=== PATIENT | male | born 1955 | race African-American/Black ===

== ENCOUNTER 2022-02-11 10:58 | Inpatient (IN) | payer OTHER ==
[2022-02-11 12:51] VITALS: BMI 20.9
[2022-02-11] MEDS ORDERED: MAGNESIUM HYDROX 2400MG/30ML ORAL SUSPENSION 30 ML CUP PO PRN (13:17)
[2022-02-11] MEDS ORDERED: NICOTINE 10 MG CARTRIDGE (INHALER) IH PRN (13:17)
[2022-02-11] MEDS ORDERED: BENZOCAINE/MENTHOL (CHLORASEPTIC ) LOZENGE MM PRN (13:17)
[2022-02-11] MEDS ORDERED: ACETAMINOPHEN 325 MG TABLET (FP) PO PRN ×2 (13:17)
[2022-02-11] MEDS ORDERED: NALOXONE HCL (KLOXXADO) 8 MG SPRAY NS PRN (13:17)
[2022-02-11] MEDS ORDERED: ONDANSETRON *ODT* 4 MG TABLET SL PRN (13:17)
[2022-02-11] MEDS ORDERED: LOPERAMIDE HCL 2 MG CAPSULE PO PRN (13:17)
[2022-02-11] MEDS ORDERED: POLYETHYLENE GLYCOL (HEALTHYLAX) 3350 17 GM PACKET PO PRN (13:17)
[2022-02-11] MEDS ORDERED: IBUPROFEN 400 MG TABLET (FP) PO PRN (13:17)
[2022-02-11] MEDS ORDERED: BISMUTH SUBSALICYLATE 524 MG/30 ML PO PRN (13:17)
[2022-02-11] MEDS ORDERED: DICYCLOMINE HCL 10 MG CAPSULE PO PRN (13:17)
[2022-02-11] MEDS ORDERED: MAG HYDROX/AL HYDROX/SIMETH 30 ML UNIT-DOSE CUP PO PRN (13:17)
[2022-02-11] MEDS ORDERED: IBUPROFEN 600 MG TABLET (FP) PO PRN (13:17)
[2022-02-11] MEDS: METHOCARBAMOL 500 MG TABLET PO PRN (14:50)
[2022-02-11] MEDS: PRENATAL VITAMINS W/ FOLIC ACID TABLET (FP) PO SCH (14:51)
[2022-02-11] MEDS: NICOTINE 21 MG/24 HOURS TOPICAL PATCH TD SCH (15:03)
[2022-02-11] MEDS: diazePAM 5 MG TABLET PO SCH ×2 (17:31→22:11)
[2022-02-11] MEDS: THIAMINE HCL 100 MG TABLET (FP) PO SCH (22:10)
[2022-02-11] MEDS: MELATONIN 5 MG TABLETS PO SCH (22:10)
[2022-02-11] MEDS: hydrOXYzine PAMOATE 25 MG CAPSULE (FP) PO PRN (22:11)
[2022-02-11] MEDS: QUEtiapine FUMARATE 100 MG TABLET (FP) PO SCH (22:11)
[2022-02-12] MEDS: diazePAM 5 MG TABLET PO SCH ×4 (06:00→22:20)
[2022-02-12] MEDS ORDERED: methaDONE HCL 10 MG TABLET PO ONE (09:11)
[2022-02-12] MEDS ORDERED: methaDONE 80 MG, methaDONE 10 MG PO ONE (09:20)
[2022-02-12] MEDS: METHOCARBAMOL 500 MG TABLET PO PRN ×2 (10:51→18:36)
[2022-02-12] MEDS: PRENATAL VITAMINS W/ FOLIC ACID TABLET (FP) PO SCH (10:52)
[2022-02-12] MEDS: NICOTINE 21 MG/24 HOURS TOPICAL PATCH TD SCH (10:58)
[2022-02-12 11:38] LABS: CALCIUM 8.5 mg/dL (8.5-10.1)
[2022-02-12 11:39] LABS: ALBUMIN 2.9 g/dl (3.4-5.0); BLOOD UREA NITROGEN 12.8 mg/dL (7-18); HEMOGLOBIN 12.8 GM/dL (11.7-16.9); MCH 27.8 pg (25.7-33.7); MCHC 31.9 g/dl (32.0-35.9); MEAN CELL VOLUME 87.1 fl (80-96); MEAN PLT VOLUME 9.3 fl (7.5-11.1); PLATELET COUNT 215 10^3/uL (134-434); RBC 4.59 M/mm3 (4.00-5.60); RDW 16.3 % (11.9-15.9); WHITE BLOOD COUNT 5.6 K/mm3 (4.0-10.0)
[2022-02-12 11:42] LABS: CREATININE 0.7 mg/dL (0.55-1.3)
[2022-02-12 11:43] LABS: BILIRUBIN,TOTAL 0.3 mg/dL (0.2-1)
[2022-02-12 11:44] LABS: TOT PROT 6.2 g/dl (6.4-8.2)
[2022-02-12 12:34] LABS: HIV INTERPRETATION NEGATIVE (NEGATIVE)
[2022-02-12] MEDS ORDERED: LACTULOSE 20 GM/30 ML UDC (FOR ORAL USE ONLY) PO PRN (14:38)
[2022-02-12] MEDS: diazePAM 5 MG TABLET PO PRN ×2 (14:40→18:37)
[2022-02-12] MEDS: hydrOXYzine PAMOATE 25 MG CAPSULE (FP) PO PRN (18:36)
[2022-02-12] MEDS: THIAMINE HCL 100 MG TABLET (FP) PO SCH (22:13)
[2022-02-12] MEDS: QUEtiapine FUMARATE 100 MG TABLET (FP) PO SCH (22:13)
[2022-02-12] MEDS: MELATONIN 5 MG TABLETS PO SCH (22:13)
[2022-02-13] MEDS: diazePAM 5 MG TABLET PO SCH ×3 (05:42→22:32)
[2022-02-13] MEDS: methaDONE 80 MG, methaDONE 10 MG PO SCH (05:42)
[2022-02-13] MEDS ORDERED: methaDONE HCL 10 MG TABLET PO SCH (06:00)
[2022-02-13] MEDS ORDERED: LISINOPRIL 5 MG TABLET PO SCH (10:00)
[2022-02-13] MEDS: PRENATAL VITAMINS W/ FOLIC ACID TABLET (FP) PO SCH (10:37)
[2022-02-13] MEDS: LISINOPRIL 5 MG TABLET PO SCH (10:38)
[2022-02-13] MEDS: NICOTINE 21 MG/24 HOURS TOPICAL PATCH TD SCH (10:38)
[2022-02-13] MEDS: RIFAXIMIN 550 MG TABLET PO SCH ×2 (11:00→22:32)
[2022-02-13] MEDS: MELATONIN 5 MG TABLETS PO SCH (22:30)
[2022-02-13] MEDS: QUEtiapine FUMARATE 100 MG TABLET (FP) PO SCH (22:30)
[2022-02-13] MEDS: THIAMINE HCL 100 MG TABLET (FP) PO SCH (22:30)
[2022-02-14] MEDS: diazePAM 5 MG TABLET PO SCH ×2 (06:15→17:28)
[2022-02-14] MEDS: methaDONE 80 MG, methaDONE 10 MG PO SCH (06:15)
[2022-02-14] MEDS: PRENATAL VITAMINS W/ FOLIC ACID TABLET (FP) PO SCH (10:28)
[2022-02-14] MEDS: LISINOPRIL 5 MG TABLET PO SCH (10:28)
[2022-02-14] MEDS: NICOTINE 21 MG/24 HOURS TOPICAL PATCH TD SCH (10:28)
[2022-02-14] MEDS: RIFAXIMIN 550 MG TABLET PO SCH ×2 (10:29→22:26)
[2022-02-14] MEDS: LACTULOSE 20 GM/30 ML UDC (FOR ORAL USE ONLY) PO SCH ×2 (13:12→22:25)
[2022-02-14] MEDS: MELATONIN 5 MG TABLETS PO SCH (22:25)
[2022-02-14] MEDS: THIAMINE HCL 100 MG TABLET (FP) PO SCH (22:25)
[2022-02-14] MEDS: QUEtiapine FUMARATE 100 MG TABLET (FP) PO SCH (22:26)
[2022-02-15] MEDS ORDERED: diazePAM 5 MG TABLET PO ONE (06:00)
[2022-02-15] MEDS: LACTULOSE 20 GM/30 ML UDC (FOR ORAL USE ONLY) PO SCH ×3 (07:39→22:08)
[2022-02-15] MEDS: methaDONE 80 MG, methaDONE 10 MG PO SCH (07:39)
[2022-02-15] MEDS: PRENATAL VITAMINS W/ FOLIC ACID TABLET (FP) PO SCH (10:50)
[2022-02-15] MEDS: LISINOPRIL 5 MG TABLET PO SCH (10:50)
[2022-02-15] MEDS: NICOTINE 21 MG/24 HOURS TOPICAL PATCH TD SCH (10:50)
[2022-02-15] MEDS: RIFAXIMIN 550 MG TABLET PO SCH ×2 (10:51→22:09)
[2022-02-15] MEDS: QUEtiapine FUMARATE 100 MG TABLET (FP) PO SCH (22:09)
[2022-02-15] MEDS: MELATONIN 5 MG TABLETS PO SCH (22:09)
[2022-02-15] MEDS: THIAMINE HCL 100 MG TABLET (FP) PO SCH (22:09)
[2022-02-16] MEDS: LACTULOSE 20 GM/30 ML UDC (FOR ORAL USE ONLY) PO SCH (05:55)
[2022-02-16] MEDS: methaDONE 80 MG, methaDONE 10 MG PO SCH (05:55)
[2022-02-16 06:50] VITALS: PULSE 106
[2022-02-16 09:50] VITALS: BP 115/79; RESP 20; TEMP 98
[2022-02-16] MEDS: PRENATAL VITAMINS W/ FOLIC ACID TABLET (FP) PO SCH (11:03)
[2022-02-16] MEDS: LISINOPRIL 5 MG TABLET PO SCH (11:03)
[2022-02-16] MEDS: NICOTINE 21 MG/24 HOURS TOPICAL PATCH TD SCH (11:03)
[2022-02-16] MEDS: RIFAXIMIN 550 MG TABLET PO SCH (11:03)
== END 2022-02-16 11:47 | disposition home or self-care (01) | DRG 897 ==
LOC: YASAS 10:58 → Y6N 14:22
PROVIDERS: ADMIT Allergy & Immunology; ATTEND Surgery
PROC: HZ2ZZZZ Detoxification Services for Substance Abuse Treatment (ICD-10-PCS; principal; 2022-02-11)
DX: F10.230 Alcohol dependence with withdrawal, uncomplicated (principal); F11.20 Opioid dependence, uncomplicated; F14.20 Cocaine dependence, uncomplicated; F19.282 Other psychoactive substance dependence with psychoactive substance-induced sleep disorder; F15.10 Other stimulant abuse, uncomplicated; F17.210 Nicotine dependence, cigarettes, uncomplicated; F25.9 Schizoaffective disorder, unspecified; F19.24 Other psychoactive substance dependence with psychoactive substance-induced mood disorder; I10 Essential (primary) hypertension; R79.89 Other specified abnormal findings of blood chemistry; Z86.19 Personal history of other infectious and parasitic diseases; Z91.011 Allergy to milk products
CPT/HCPCS: 36415; 80053; 82140; 85027; 86780; 87389; 93005; 93010; C9803-CS; U0003; U0005

== ENCOUNTER 2022-04-16 13:30 | Inpatient (IN) | payer OTHER ==
[2022-04-16 15:25] VITALS: BMI 20.9
[2022-04-16] MEDS ORDERED: NICOTINE 10 MG CARTRIDGE (INHALER) IH PRN (16:26)
[2022-04-16] MEDS ORDERED: LORazepam 2 MG TABLET PO ONE (16:26)
[2022-04-16] MEDS ORDERED: IBUPROFEN 600 MG TABLET (FP) PO PRN (16:26)
[2022-04-16] MEDS ORDERED: POLYETHYLENE GLYCOL (HEALTHYLAX) 3350 17 GM PACKET PO PRN (16:26)
[2022-04-16] MEDS ORDERED: MAG HYDROX/AL HYDROX/SIMETH 30 ML UNIT-DOSE CUP PO PRN (16:26)
[2022-04-16] MEDS ORDERED: LOPERAMIDE HCL 2 MG CAPSULE PO PRN (16:26)
[2022-04-16] MEDS ORDERED: NALOXONE HCL (KLOXXADO) 8 MG SPRAY NS PRN (16:26)
[2022-04-16] MEDS ORDERED: IBUPROFEN 400 MG TABLET (FP) PO PRN (16:26)
[2022-04-16] MEDS ORDERED: BISMUTH SUBSALICYLATE 524 MG/30 ML PO PRN (16:26)
[2022-04-16] MEDS ORDERED: LORazepam 1 MG TABLET PO PRN (16:26)
[2022-04-16] MEDS ORDERED: DICYCLOMINE HCL 10 MG CAPSULE PO PRN (16:26)
[2022-04-16] MEDS ORDERED: BENZOCAINE/MENTHOL (CHLORASEPTIC ) LOZENGE MM PRN (16:26)
[2022-04-16] MEDS ORDERED: MAGNESIUM HYDROX 2400MG/30ML ORAL SUSPENSION 30 ML CUP PO PRN (16:26)
[2022-04-16] MEDS ORDERED: hydrOXYzine PAMOATE 25 MG CAPSULE (FP) PO PRN (16:26)
[2022-04-16] MEDS ORDERED: ONDANSETRON *ODT* 4 MG TABLET SL PRN (16:26)
[2022-04-16] MEDS ORDERED: ACETAMINOPHEN 325 MG TABLET (FP) PO PRN ×2 (16:26)
[2022-04-16] MEDS ORDERED: NICOTINE 21 MG/24 HOURS TOPICAL PATCH TD SCH (16:30)
[2022-04-16] MEDS ORDERED: PRENATAL VITAMINS W/ FOLIC ACID TABLET (FP) PO SCH (16:30)
[2022-04-16] MEDS: LORazepam 2 MG TABLET PO SCH ×2 (17:33→22:37)
[2022-04-16] MEDS ORDERED: MELATONIN 5 MG TABLETS PO SCH (22:00)
[2022-04-16] MEDS ORDERED: THIAMINE HCL 100 MG TABLET (FP) PO SCH (22:00)
[2022-04-17 01:58] VITALS: BP 141/96; PULSE 81; RESP 17; TEMP 97.8
[2022-04-17] MEDS: LORazepam 2 MG TABLET PO SCH (05:51)
[2022-04-17] MEDS ORDERED: LISINOPRIL 10 MG TABLET PO SCH (10:00)
[2022-04-18] MEDS ORDERED: LORazepam 1 MG TABLET PO SCH (05:00)
[2022-04-19] MEDS ORDERED: LORazepam 0.5 MG TABLET PO PRN
[2022-04-19] MEDS ORDERED: LORazepam 0.5 MG TABLET PO SCH (05:00)
[2022-04-20] MEDS ORDERED: LORazepam 0.5 MG TABLET PO ONE (05:00)
== END 2022-04-17 11:18 | disposition short-term general hospital (02) | DRG 897 ==
LOC: YASAS 13:30 → Y6N 16:46
PROVIDERS: ADMIT Allergy & Immunology; ATTEND Surgery
PROC: HZ2ZZZZ Detoxification Services for Substance Abuse Treatment (ICD-10-PCS; principal; 2022-04-16)
DX: F10.230 Alcohol dependence with withdrawal, uncomplicated (principal); F11.20 Opioid dependence, uncomplicated; F14.20 Cocaine dependence, uncomplicated; F19.282 Other psychoactive substance dependence with psychoactive substance-induced sleep disorder; F12.20 Cannabis dependence, uncomplicated; F17.210 Nicotine dependence, cigarettes, uncomplicated; F25.9 Schizoaffective disorder, unspecified; F19.24 Other psychoactive substance dependence with psychoactive substance-induced mood disorder; F41.9 Anxiety disorder, unspecified; Z86.19 Personal history of other infectious and parasitic diseases
CPT/HCPCS: C9803-CS; U0003; U0005

== ENCOUNTER 2022-04-17 02:27 | Observation (INO) | payer OTHER ==
[2022-04-17 03:30] LABS: BASO % 0.8 % (0-2.0); EOS % 1.9 % (0-4.5); HEMATOCRIT 36.2 % (35.4-49); HEMOGLOBIN 12.3 GM/dL (11.7-16.9); MCH 29.6 pg (25.7-33.7); MCHC 33.9 g/dl (32.0-35.9); MEAN CELL VOLUME 87.2 fl (80-96); MONO % 8.1 % (3.8-10.2); NEUT % 62.2 % (42.8-82.8); PLATELET COUNT 202 10^3/uL (134-434); RBC 4.15 M/mm3 (4.00-5.60); RDW 16.1 % (11.9-15.9); WHITE BLOOD COUNT 7.7 K/mm3 (4.0-10.0)
[2022-04-17 03:53] LABS: CALCIUM 8.5 mg/dL (8.5-10.1)
[2022-04-17 03:54] LABS: ALBUMIN 3.4 g/dl (3.4-5.0); BLOOD UREA NITROGEN 17.8 mg/dL (7-18)
[2022-04-17 03:57] LABS: CREATININE 0.9 mg/dL (0.55-1.3)
[2022-04-17 03:58] LABS: TOT PROT 6.8 g/dl (6.4-8.2)
[2022-04-17 03:59] LABS: BILIRUBIN,TOTAL 0.3 mg/dL (0.2-1)
[2022-04-17] MEDS ORDERED: LACTATED RINGERS SOLUTION 1,000 ML IV SCH (10:45)
[2022-04-17] MEDS ORDERED: LISINOPRIL 10 MG TABLET PO SCH (17:15)
[2022-04-17 18:03] VITALS: BMI 20.9
[2022-04-17] MEDS ORDERED: LISINOPRIL 10 MG TABLET PO ONE (18:50)
[2022-04-17] MEDS: OLANZapine 5 MG TABLET PO SCH (22:14)
[2022-04-18 08:47] LABS: INR 1.1 (0.83-1.09); PROTHROMBIN TIME (PATIENT) 12.7 SEC (9.7-13.0)
[2022-04-18 08:50] LABS: ACTIVATED PTT 28.3 SECONDS (25.2-36.5)
[2022-04-18 08:59] LABS: HEMATOCRIT 41.8 % (35.4-49); HEMOGLOBIN 13.7 GM/dL (11.7-16.9); MCH 28.5 pg (25.7-33.7); MCHC 32.8 g/dl (32.0-35.9); MEAN PLT VOLUME 9.4 fl (7.5-11.1); PLATELET COUNT 194 10^3/uL (134-434); RDW 15.9 % (11.9-15.9); WHITE BLOOD COUNT 6.2 K/mm3 (4.0-10.0)
[2022-04-18 09:12] LABS: ALBUMIN 3.2 g/dl (3.4-5.0); CALCIUM 8.6 mg/dL (8.5-10.1)
[2022-04-18 09:13] LABS: BLOOD UREA NITROGEN 14.2 mg/dL (7-18); MAGNESIUM 2.2 mg/dL (1.8-2.4)
[2022-04-18 09:15] LABS: PHOSPHOROUS 3.6 mg/dL (2.5-4.9)
[2022-04-18 09:16] LABS: BILIRUBIN,TOTAL 0.5 mg/dL (0.2-1); CREATININE 0.9 mg/dL (0.55-1.3); TOT PROT 6.6 g/dl (6.4-8.2)
[2022-04-18 09:21] LABS: N-TERMINAL BNP 209.8 pg/ml (5-125)
[2022-04-18 09:50] LABS: ANISOCYTOSIS 0; MACROCYTOSIS 0
[2022-04-18] MEDS ORDERED: LISINOPRIL 20 MG TABLET PO ONE (10:00)
[2022-04-18] MEDS: ENOXAPARIN NA (PORCINE) 40 MG/0.4 ML DISP.SYRIN SQ SCH (10:20)
[2022-04-18] MEDS ORDERED: methaDONE HCL 10 MG TABLET PO SCH (11:45)
[2022-04-18] MEDS: methaDONE 80 MG, methaDONE 10 MG PO SCH (12:14)
[2022-04-18] MEDS: amLODIPine BESYLATE 5 MG TABLET (FP) PO SCH (12:15)
[2022-04-18] MEDS: OLANZapine 5 MG TABLET PO SCH (21:29)
[2022-04-19] MEDS: methaDONE 80 MG, methaDONE 10 MG PO SCH (05:26)
[2022-04-19] MEDS: ENOXAPARIN NA (PORCINE) 40 MG/0.4 ML DISP.SYRIN SQ SCH (09:53)
[2022-04-19] MEDS: amLODIPine BESYLATE 5 MG TABLET (FP) PO SCH (09:53)
[2022-04-19] MEDS ORDERED: LISINOPRIL 20 MG TABLET PO ONE ×2 (21:18→22:35)
[2022-04-19] MEDS: OLANZapine 5 MG TABLET PO SCH (22:50)
[2022-04-20] MEDS: methaDONE 80 MG, methaDONE 10 MG PO SCH (06:15)
[2022-04-20] MEDS: ENOXAPARIN NA (PORCINE) 40 MG/0.4 ML DISP.SYRIN SQ SCH (09:28)
[2022-04-20] MEDS: amLODIPine BESYLATE 5 MG TABLET (FP) PO SCH (09:28)
[2022-04-20 14:50] VITALS: BP 138/82; PULSE 95; RESP 18; TEMP 97.7
[2022-04-21] MEDS ORDERED: amLODIPine BESYLATE 10 MG TABLET (FP) PO SCH (10:00)
== END 2022-04-20 17:11 | disposition home or self-care (01) ==
LOC: JER 02:27 → JERBED 06:16 → J8W 16:19
PROVIDERS: ADMIT Internal Medicine; ATTEND Internal Medicine
PROC: 3E023GC Introduction of Other Therapeutic Substance into Muscle, Percutaneous Approach (ICD-10-PCS; principal; 2022-04-17)
PROC: 3E0337Z Introduction of Electrolytic and Water Balance Substance into Peripheral Vein, Percutaneous Approach (ICD-10-PCS; 2022-04-17)
DX: R41.82 Altered mental status, unspecified (principal); F19.10 Other psychoactive substance abuse, uncomplicated; W18.39XA Other fall on same level, initial encounter; Y93.89 Activity, other specified; Y92.89 Other specified places as the place of occurrence of the external cause; Z91.040 Latex allergy status
CPT/HCPCS: 0241U-QW; 36415; 70450-TC; 71045-TC-FY; 72125-TC; 80053; 83735; 83880; 84100; 84484; 85025; 85610; 85730; 93005; 93010; 96360; 96372; 99285-25; G0378

== ENCOUNTER 2022-09-22 23:08 | Inpatient (IN) | payer OTHER ==
[2022-09-22 23:36] VITALS: BMI 21.9
[2022-09-23] MEDS ORDERED: POLYETHYLENE GLYCOL (HEALTHYLAX) 3350 17 GM PACKET PO PRN (00:06)
[2022-09-23] MEDS ORDERED: ACETAMINOPHEN 325 MG TABLET (FP) PO PRN (00:06)
[2022-09-23] MEDS ORDERED: BENZONATATE 200 MG CAPSULE PO PRN (00:06)
[2022-09-23] MEDS ORDERED: guaiFENesin 600 MG TABLET.ER (FP) PO PRN (00:06)
[2022-09-23] MEDS ORDERED: ONDANSETRON *ODT* 4 MG TABLET SL PRN (00:06)
[2022-09-23] MEDS ORDERED: BENZOCAINE/MENTHOL (CHLORASEPTIC ) LOZENGE MM PRN (00:06)
[2022-09-23] MEDS ORDERED: NALOXONE HCL (KLOXXADO) 8 MG SPRAY NS PRN (00:06)
[2022-09-23] MEDS ORDERED: NALOXONE HCL 0.4 MG/ML VIAL IM PRN (00:06)
[2022-09-23] MEDS ORDERED: LOPERAMIDE HCL 2 MG CAPSULE PO PRN (00:06)
[2022-09-23] MEDS ORDERED: MAG HYDROX/AL HYDROX/SIMETH 30 ML UNIT-DOSE CUP PO PRN (00:06)
[2022-09-23] MEDS ORDERED: MAGNESIUM HYDROX 2400MG/30ML ORAL SUSPENSION 30 ML CUP PO PRN (00:06)
[2022-09-23] MEDS ORDERED: DICYCLOMINE HCL 10 MG CAPSULE PO PRN (00:06)
[2022-09-23] MEDS ORDERED: IBUPROFEN 600 MG TABLET (FP) PO PRN (00:06)
[2022-09-23] MEDS ORDERED: NICOTINE POLACRILEX 2 MG GUM BUC PRN (00:06)
[2022-09-23] MEDS ORDERED: IBUPROFEN 400 MG TABLET (FP) PO PRN (00:06)
[2022-09-23] MEDS ORDERED: BISMUTH SUBSALICYLATE 524 MG/30 ML PO PRN (00:06)
[2022-09-23] MEDS ORDERED: cloNIDine HCL 0.1 MG TABLET PO ONE (01:23)
[2022-09-23] MEDS: hydrOXYzine PAMOATE 25 MG CAPSULE (FP) PO PRN (06:25)
[2022-09-23] MEDS ORDERED: chlordiazePOXIDE HCL 25 MG CAPSULE PO PRN (09:35)
[2022-09-23] MEDS ORDERED: methaDONE HCL 10 MG TABLET PO SCH (09:45)
[2022-09-23] MEDS: chlordiazePOXIDE HCL 25 MG CAPSULE PO SCH ×3 (10:10→22:03)
[2022-09-23] MEDS: PRENATAL VITAMINS W/ FOLIC ACID TABLET (FP) PO SCH (10:11)
[2022-09-23] MEDS: amLODIPine BESYLATE 10 MG TABLET (FP) PO SCH (10:12)
[2022-09-23] MEDS: methaDONE 80 MG, methaDONE 20 MG PO SCH (10:12)
[2022-09-23] MEDS: NICOTINE 21 MG/24 HOURS TOPICAL PATCH TD SCH (10:13)
[2022-09-23 10:36] LABS: POTASSIUM 4.4 mmol/L (3.5-5.1)
[2022-09-23 10:38] LABS: HEMATOCRIT 36.8 % (35.4-49); HEMOGLOBIN 12.6 GM/dL (11.7-16.9); MCH 29.8 pg (25.7-33.7); MCHC 34.2 g/dl (32.0-35.9); MEAN CELL VOLUME 87.1 fl (80-96); MEAN PLT VOLUME 9.1 fl (7.5-11.1); PLATELET COUNT 203 10^3/uL (134-434); RBC 4.22 M/mm3 (4.00-5.60); WHITE BLOOD COUNT 5.5 K/mm3 (4.0-10.0)
[2022-09-23 10:45] LABS: CALCIUM 8.4 mg/dL (8.5-10.1)
[2022-09-23 10:46] LABS: ALBUMIN 3.1 g/dl (3.4-5.0); BLOOD UREA NITROGEN 14.1 mg/dL (7-18)
[2022-09-23 10:49] LABS: CREATININE 0.9 mg/dL (0.55-1.3)
[2022-09-23 10:50] LABS: BILIRUBIN,TOTAL 0.5 mg/dL (0.2-1); TOT PROT 6.4 g/dl (6.4-8.2)
[2022-09-23] MEDS: THIAMINE HCL 100 MG TABLET (FP) PO SCH (21:35)
[2022-09-23] MEDS: MELATONIN 5 MG TABLETS PO SCH (21:35)
[2022-09-23] MEDS: LISINOPRIL 20 MG TABLET PO SCH (21:35)
[2022-09-24] MEDS: chlordiazePOXIDE HCL 25 MG CAPSULE PO SCH ×4 (05:24→22:42)
[2022-09-24] MEDS: methaDONE 80 MG, methaDONE 20 MG PO SCH (05:25)
[2022-09-24] MEDS: amLODIPine BESYLATE 10 MG TABLET (FP) PO SCH (10:04)
[2022-09-24] MEDS: LISINOPRIL 20 MG TABLET PO SCH (10:04)
[2022-09-24] MEDS: PRENATAL VITAMINS W/ FOLIC ACID TABLET (FP) PO SCH (10:04)
[2022-09-24] MEDS: NICOTINE 21 MG/24 HOURS TOPICAL PATCH TD SCH (10:05)
[2022-09-24] MEDS: METHYL SALICYLATE/MENTHOL OINT 30 GM TUBE TP SCH ×2 (10:14→22:40)
[2022-09-24] MEDS: THIAMINE HCL 100 MG TABLET (FP) PO SCH (22:41)
[2022-09-24] MEDS: MELATONIN 5 MG TABLETS PO SCH (22:41)
[2022-09-24] MEDS: hydrOXYzine PAMOATE 25 MG CAPSULE (FP) PO PRN (22:42)
[2022-09-25] MEDS: chlordiazePOXIDE HCL 25 MG CAPSULE PO SCH ×2 (05:27→11:43)
[2022-09-25] MEDS: methaDONE 80 MG, methaDONE 20 MG PO SCH (05:27)
[2022-09-25 08:55] VITALS: BP 112/68; PULSE 81; RESP 19; TEMP 98.6
[2022-09-25] MEDS ORDERED: PNEUMOC 20-VAL CONJ-DIP CRM/PF 0.5 ML SYRINGE IM ONE (10:00)
[2022-09-25] MEDS ORDERED: NALOXONE HCL 0.4 MG/ML VIAL ONE (11:12)
[2022-09-25] MEDS: METHYL SALICYLATE/MENTHOL OINT 30 GM TUBE TP SCH (11:41)
[2022-09-25] MEDS: PRENATAL VITAMINS W/ FOLIC ACID TABLET (FP) PO SCH (11:42)
[2022-09-25] MEDS: amLODIPine BESYLATE 10 MG TABLET (FP) PO SCH (11:42)
[2022-09-25] MEDS: NICOTINE 21 MG/24 HOURS TOPICAL PATCH TD SCH (11:42)
[2022-09-25] MEDS: LISINOPRIL 20 MG TABLET PO SCH (11:43)
[2022-09-26] MEDS ORDERED: chlordiazePOXIDE HCL 10 MG CAPSULE PO PRN
[2022-09-26] MEDS ORDERED: chlordiazePOXIDE HCL 10 MG CAPSULE PO SCH (05:00)
[2022-09-27] MEDS ORDERED: chlordiazePOXIDE HCL 10 MG CAPSULE PO SCH (05:00)
[2022-09-28] MEDS ORDERED: chlordiazePOXIDE HCL 10 MG CAPSULE PO ONE (05:00)
== END 2022-09-25 08:57 | disposition short-term general hospital (02) | DRG 897 ==
LOC: YASAS 23:08 → Y3N 09-23 00:39
PROVIDERS: ADMIT Surgery; ATTEND Allergy & Immunology
PROC: HZ2ZZZZ Detoxification Services for Substance Abuse Treatment (ICD-10-PCS; principal; 2022-09-23)
DX: F10.230 Alcohol dependence with withdrawal, uncomplicated (principal); F11.20 Opioid dependence, uncomplicated; F14.20 Cocaine dependence, uncomplicated; F17.210 Nicotine dependence, cigarettes, uncomplicated; F19.982 Other psychoactive substance use, unspecified with psychoactive substance-induced sleep disorder; I10 Essential (primary) hypertension; M25.512 Pain in left shoulder; M25.552 Pain in left hip; R26.2 Difficulty in walking, not elsewhere classified; Z99.89 Dependence on other enabling machines and devices; W18.39XA Other fall on same level, initial encounter; Z91.81 History of falling; Y93.89 Activity, other specified; Y92.238 Other place in hospital as the place of occurrence of the external cause
CPT/HCPCS: 36415; 80053; 85027; 86780; 87635

== ENCOUNTER 2022-09-23 14:22 | Emergency (ER) | payer OTHER ==
[2022-09-23 14:44] VITALS: BMI 21.9
[2022-09-23] MEDS ORDERED: LIDOCAINE 5% TOPICAL PATCH TP ONE (16:18)
[2022-09-23] MEDS ORDERED: KETOROLAC TROMETHAMINE 30 MG/1 ML VIAL IM ONE (16:18)
[2022-09-23] MEDS ORDERED: KETOROLAC TROMETHAMINE 30 MG/1 ML VIAL ONE (16:47)
[2022-09-23] MEDS ORDERED: LIDOCAINE 5% TOPICAL PATCH ONE (16:47)
[2022-09-23 17:29] VITALS: BP 117/83; PULSE 66; RESP 16; TEMP 97.6
[2022-09-23] MEDS ORDERED: LIDOCAINE PATCH REMOVAL MC SCH (22:00)
== END 2022-09-23 17:30 | disposition home or self-care (01) ==
LOC: JER 14:22
PROC: 3E0233Z Introduction of Anti-inflammatory into Muscle, Percutaneous Approach (ICD-10-PCS; principal; 2022-09-23)
DX: M79.602 Pain in left arm (principal); F14.20 Cocaine dependence, uncomplicated; F11.20 Opioid dependence, uncomplicated; W07.XXXA Fall from chair, initial encounter; Y93.89 Activity, other specified; Y92.9 Unspecified place or not applicable
CPT/HCPCS: 71046-TC-FY; 73030-TC-LT-FY; 73060-TC-LT-FY; 99284-25

== ENCOUNTER 2022-09-25 09:14 | Inpatient (IN) | payer OTHER ==
[2022-09-25 10:55] LABS: BASO % 0.5 % (0-2.0); EOS % 2.6 % (0-4.5); HEMATOCRIT 36.7 % (35.4-49); HEMOGLOBIN 12.5 GM/dL (11.7-16.9); LYMPH % 26.9 % (8-40); MCH 29.5 pg (25.7-33.7); MCHC 33.9 g/dl (32.0-35.9); MEAN CELL VOLUME 87.1 fl (80-96); MEAN PLT VOLUME 8.9 fl (7.5-11.1); MONO % 9.7 % (3.8-10.2); NEUT % 60.3 % (42.8-82.8); PLATELET COUNT 197 10^3/uL (134-434); RBC 4.22 M/mm3 (4.00-5.60); RDW 14.9 % (11.9-15.9); WHITE BLOOD COUNT 5.8 K/mm3 (4.0-10.0)
[2022-09-25 11:13] LABS: CHLORIDE 111 mmol/L (98-107); POTASSIUM 4.9 mmol/L (3.5-5.1); SODIUM 143 mmol/L (136-145)
[2022-09-25 11:14] LABS: ALBUMIN 3.3 g/dl (3.4-5.0); CALCIUM 8.5 mg/dL (8.5-10.1); GLUCOSE,RANDOM 89 mg/dL (74-106)
[2022-09-25 11:15] LABS: ANION GAP 3 MMOL/L (8-16); CO2 29 mmol/L (21-32); MAGNESIUM 2.1 mg/dL (1.8-2.4)
[2022-09-25 11:17] LABS: SGOT/AST 27 U/L (15-37)
[2022-09-25 11:18] LABS: CREATININE 0.9 mg/dL (0.55-1.3); SGPT/ALT 28 U/L (13-61)
[2022-09-25 11:20] LABS: BILIRUBIN,TOTAL 0.2 mg/dL (0.2-1); TOT PROT 6.6 g/dl (6.4-8.2)
[2022-09-25 11:21] LABS: ALK PHOS 110 U/L (45-117)
[2022-09-25] MEDS ORDERED: LORazepam 2 MG/ML SDV VIAL IVPUSH PRN ×2 (13:53→13:54)
[2022-09-25] MEDS ORDERED: DEXTROSE 5%-LACTATED RINGERS 1,000 ML IV SCH (14:00)
[2022-09-25] MEDS ORDERED: chlordiazePOXIDE HCL 25 MG CAPSULE PO PRN (17:23)
[2022-09-25] MEDS: LACTATED RINGERS SOLUTION 1000 ML INFUS.BAG IV ONE ×2 (17:25→18:20)
[2022-09-25] MEDS ORDERED: FOLIC ACID INJECTION - 1 MG, THIAMINE HCL 100 MG, MULTIVIT INJECTION ADULT 10 ML in SOD... IVPB ONE ×2 (17:30→19:00)
[2022-09-25] MEDS: chlordiazePOXIDE HCL 25 MG CAPSULE PO SCH ×2 (18:06→22:29)
[2022-09-25] MEDS: OLANZapine 5 MG TABLET PO SCH (22:29)
[2022-09-26] MEDS: chlordiazePOXIDE HCL 25 MG CAPSULE PO SCH ×4 (05:19→22:21)
[2022-09-26 08:51] LABS: BASO % 0.5 % (0-2.0); EOS % 2.4 % (0-4.5); HEMATOCRIT 37.2 % (35.4-49); HEMOGLOBIN 12.6 GM/dL (11.7-16.9); LYMPH % 28.1 % (8-40); MCH 29.4 pg (25.7-33.7); MCHC 33.9 g/dl (32.0-35.9); MEAN CELL VOLUME 86.6 fl (80-96); MEAN PLT VOLUME 8.9 fl (7.5-11.1); MONO % 8.7 % (3.8-10.2); NEUT % 60.3 % (42.8-82.8); PLATELET COUNT 199 10^3/uL (134-434); RDW 15.1 % (11.9-15.9); WHITE BLOOD COUNT 5.9 K/mm3 (4.0-10.0)
[2022-09-26 09:20] LABS: POTASSIUM 4.2 mmol/L (3.5-5.1)
[2022-09-26 09:22] LABS: BLOOD UREA NITROGEN 13.3 mg/dL (7-18); CALCIUM 8.2 mg/dL (8.5-10.1); MAGNESIUM 2.1 mg/dL (1.8-2.4)
[2022-09-26 09:26] LABS: CREATININE 0.8 mg/dL (0.55-1.3)
[2022-09-26 09:27] LABS: BILIRUBIN,TOTAL 0.4 mg/dL (0.2-1); PHOSPHOROUS 3.9 mg/dL (2.5-4.9)
[2022-09-26] MEDS: ENOXAPARIN NA (PORCINE) 40 MG/0.4 ML DISP.SYRIN SQ SCH (11:22)
[2022-09-26] MEDS: OLANZapine 5 MG TABLET PO SCH ×2 (11:23→22:21)
[2022-09-26] MEDS: amLODIPine BESYLATE 10 MG TABLET (FP) PO SCH (16:31)
[2022-09-26] MEDS: LISINOPRIL 20 MG TABLET PO SCH (22:21)
[2022-09-26 22:43] LABS: URINE BARBITURATES NEGATIVE (NEGATIVE)
[2022-09-26 22:44] LABS: OPIATES, URI NEGATIVE (NEGATIVE); PHENCYCLIDINE,URINE NEGATIVE (NEGATIVE)
[2022-09-26 22:51] LABS: COCAINE, UR POSITIVE (NEGATIVE); METHADONE, UR POSITIVE (NEGATIVE); URINE AMPHETAMINES NEGATIVE (NEGATIVE); URINE BENZODIAZEPINES POSITIVE (NEGATIVE)
[2022-09-26 23:05] LABS: PH,URINE 7.5 (5.0-8.0); URINE APPEARANCE CLEAR; URINE BILIRUBIN NEGATIVE (NEGATIVE); URINE COLOR YELLOW; URINE GLUCOSE (UA) NEGATIVE (NEGATIVE); URINE KETONE NEGATIVE (NEGATIVE); URINE LEUK ESTERASE NEGATIVE (NEGATIVE); URINE NITRITE NEGATIVE (NEGATIVE); URINE PROTEIN NEGATIVE (NEGATIVE)
[2022-09-27] MEDS: chlordiazePOXIDE HCL 10 MG CAPSULE PO SCH ×3 (05:57→17:25)
[2022-09-27] MEDS: ENOXAPARIN NA (PORCINE) 40 MG/0.4 ML DISP.SYRIN SQ SCH (10:28)
[2022-09-27] MEDS: OLANZapine 5 MG TABLET PO SCH ×2 (11:56→21:43)
[2022-09-27] MEDS: amLODIPine BESYLATE 10 MG TABLET (FP) PO SCH (11:56)
[2022-09-27] MEDS: LISINOPRIL 20 MG TABLET PO SCH (21:43)
[2022-09-28] MEDS ORDERED: chlordiazePOXIDE HCL 10 MG CAPSULE PO PRN
[2022-09-28] MEDS: chlordiazePOXIDE HCL 10 MG CAPSULE PO SCH ×3 (01:16→17:59)
[2022-09-28] MEDS: ENOXAPARIN NA (PORCINE) 40 MG/0.4 ML DISP.SYRIN SQ SCH (09:12)
[2022-09-28] MEDS: OLANZapine 5 MG TABLET PO SCH ×2 (09:12→22:08)
[2022-09-28] MEDS: amLODIPine BESYLATE 10 MG TABLET (FP) PO SCH (09:12)
[2022-09-28] MEDS: THIAMINE HCL 100 MG TABLET (FP) PO SCH (12:31)
[2022-09-28] MEDS: FOLIC ACID 1 MG TABLET (FP) PO SCH (12:31)
[2022-09-28] MEDS: DEXTROSE 5%-0.45% SALINE 1,000 ML IV SCH ×2 (12:31→23:11)
[2022-09-28] MEDS ORDERED: methaDONE HCL 10 MG TABLET (FOR DETOX USE ONLY) PO ONE (14:47)
[2022-09-28] MEDS ORDERED: LORazepam 2 MG/ML SDV VIAL IVPUSH ONE (14:57)
[2022-09-28] MEDS ORDERED: methaDONE 80 MG, methaDONE 20 MG PO ONE (15:00)
[2022-09-28] MEDS: LISINOPRIL 20 MG TABLET PO SCH (21:33)
[2022-09-28] MEDS: SENNOSIDES 8.6MG TABLET (FP) PO SCH (22:08)
[2022-09-29] MEDS ORDERED: chlordiazePOXIDE HCL 10 MG CAPSULE PO ONE (05:00)
[2022-09-29] MEDS: amLODIPine BESYLATE 10 MG TABLET (FP) PO SCH (09:43)
[2022-09-29] MEDS: ENOXAPARIN NA (PORCINE) 40 MG/0.4 ML DISP.SYRIN SQ SCH (09:44)
[2022-09-29] MEDS: THIAMINE HCL 100 MG TABLET (FP) PO SCH (09:45)
[2022-09-29] MEDS: FOLIC ACID 1 MG TABLET (FP) PO SCH (09:45)
[2022-09-29] MEDS: OLANZapine 5 MG TABLET PO SCH ×2 (09:45→22:26)
[2022-09-29] MEDS: DEXTROSE 5%-0.45% SALINE 1,000 ML IV SCH (17:20)
[2022-09-29] MEDS ORDERED: OLANZapine 5 MG TABLET PO ONE (17:35)
[2022-09-29] MEDS: LORazepam 2 MG/ML SDV VIAL IVPUSH PRN (17:48)
[2022-09-29] MEDS: SENNOSIDES 8.6MG TABLET (FP) PO SCH (22:26)
[2022-09-29] MEDS: LISINOPRIL 20 MG TABLET PO SCH (22:26)
[2022-09-30] MEDS: FOLIC ACID 1 MG TABLET (FP) PO SCH (09:44)
[2022-09-30] MEDS: OLANZapine 5 MG TABLET PO SCH ×2 (09:44→22:46)
[2022-09-30] MEDS: amLODIPine BESYLATE 10 MG TABLET (FP) PO SCH ×2 (09:44→10:05)
[2022-09-30] MEDS: ENOXAPARIN NA (PORCINE) 40 MG/0.4 ML DISP.SYRIN SQ SCH (09:45)
[2022-09-30] MEDS: THIAMINE HCL 100 MG TABLET (FP) PO SCH (09:45)
[2022-09-30] MEDS: MINERAL OIL/PET HY-PHL TOPICAL OINTMENT 454 GM JAR TP SCH ×2 (12:53→22:59)
[2022-09-30] MEDS: NICOTINE 14 MG/24 HOURS TOPICAL PATCH TD SCH (12:54)
[2022-09-30] MEDS: LORazepam 2 MG/ML SDV VIAL IVPUSH PRN ×2 (15:26→22:46)
[2022-09-30] MEDS: SENNOSIDES 8.6MG TABLET (FP) PO SCH (22:46)
[2022-09-30] MEDS: LISINOPRIL 20 MG TABLET PO SCH (22:46)
[2022-10-01] MEDS ORDERED: methaDONE HCL 10 MG TABLET PO ONE (08:43)
[2022-10-01] MEDS ORDERED: LORazepam 2 MG/ML SDV VIAL IVPUSH PRN (08:49)
[2022-10-01] MEDS: THIAMINE HCL 100 MG TABLET (FP) PO SCH (09:43)
[2022-10-01] MEDS: OLANZapine 5 MG TABLET PO SCH ×2 (09:43→22:23)
[2022-10-01] MEDS: NICOTINE 14 MG/24 HOURS TOPICAL PATCH TD SCH (09:43)
[2022-10-01] MEDS: ENOXAPARIN NA (PORCINE) 40 MG/0.4 ML DISP.SYRIN SQ SCH (09:43)
[2022-10-01] MEDS: amLODIPine BESYLATE 10 MG TABLET (FP) PO SCH (09:44)
[2022-10-01] MEDS: FOLIC ACID 1 MG TABLET (FP) PO SCH (09:44)
[2022-10-01] MEDS: MINERAL OIL/PET HY-PHL TOPICAL OINTMENT 454 GM JAR TP SCH ×2 (09:47→22:33)
[2022-10-01] MEDS ORDERED: methaDONE HCL 40 MG DISPERSABLE TABLET PO ONE (10:00)
[2022-10-01 13:56] VITALS: BMI 20.5
[2022-10-01] MEDS ORDERED: LORazepam 2 MG TABLET PO PRN (18:40)
[2022-10-01] MEDS: SENNOSIDES 8.6MG TABLET (FP) PO SCH (22:24)
[2022-10-01] MEDS: LISINOPRIL 20 MG TABLET PO SCH (22:24)
[2022-10-02] MEDS: methaDONE HCL 40 MG DISPERSABLE TABLET PO SCH (05:59)
[2022-10-02] MEDS ORDERED: methaDONE HCL 10 MG TABLET PO SCH (06:00)
[2022-10-02] MEDS: MINERAL OIL/PET HY-PHL TOPICAL OINTMENT 454 GM JAR TP SCH ×2 (09:37→22:44)
[2022-10-02] MEDS: THIAMINE HCL 100 MG TABLET (FP) PO SCH (09:38)
[2022-10-02] MEDS: amLODIPine BESYLATE 10 MG TABLET (FP) PO SCH (09:38)
[2022-10-02] MEDS: FOLIC ACID 1 MG TABLET (FP) PO SCH (09:38)
[2022-10-02] MEDS: NICOTINE 14 MG/24 HOURS TOPICAL PATCH TD SCH (09:38)
[2022-10-02] MEDS: ENOXAPARIN NA (PORCINE) 40 MG/0.4 ML DISP.SYRIN SQ SCH (09:38)
[2022-10-02] MEDS: OLANZapine 5 MG TABLET PO SCH ×2 (09:39→22:45)
[2022-10-02] MEDS: LORazepam 2 MG/ML SDV VIAL IVPUSH PRN (17:06)
[2022-10-02] MEDS: SENNOSIDES 8.6MG TABLET (FP) PO SCH (22:44)
[2022-10-02] MEDS: LISINOPRIL 20 MG TABLET PO SCH (22:45)
[2022-10-03] MEDS: methaDONE HCL 40 MG DISPERSABLE TABLET PO SCH (06:47)
[2022-10-03] MEDS ORDERED: SODIUM CHLORIDE 250 ML IV STA (06:52)
[2022-10-03] MEDS: ENOXAPARIN NA (PORCINE) 40 MG/0.4 ML DISP.SYRIN SQ SCH (10:08)
[2022-10-03] MEDS: FOLIC ACID 1 MG TABLET (FP) PO SCH (10:08)
[2022-10-03] MEDS: NICOTINE 14 MG/24 HOURS TOPICAL PATCH TD SCH (10:08)
[2022-10-03] MEDS: OLANZapine 5 MG TABLET PO SCH ×2 (10:09→23:08)
[2022-10-03] MEDS: MINERAL OIL/PET HY-PHL TOPICAL OINTMENT 454 GM JAR TP SCH ×2 (10:09→23:10)
[2022-10-03] MEDS: THIAMINE HCL 100 MG TABLET (FP) PO SCH (10:09)
[2022-10-03] MEDS: amLODIPine BESYLATE 10 MG TABLET (FP) PO SCH (10:13)
[2022-10-03] MEDS: LORazepam 2 MG/ML SDV VIAL IVPUSH PRN (13:04)
[2022-10-03] MEDS ORDERED: LORazepam 2 MG/ML SDV VIAL IVPUSH ONE (14:15)
[2022-10-03] MEDS: LORazepam 1 MG TABLET PO PRN (15:33)
[2022-10-03] MEDS: SENNOSIDES 8.6MG TABLET (FP) PO SCH (23:09)
[2022-10-03] MEDS: LISINOPRIL 20 MG TABLET PO SCH (23:10)
[2022-10-04] MEDS: methaDONE HCL 40 MG DISPERSABLE TABLET PO SCH (06:57)
[2022-10-04 09:23] LABS: BASO % 0.7 % (0-2.0); EOS % 2.8 % (0-4.5); HEMATOCRIT 38.8 % (35.4-49); HEMOGLOBIN 12.9 GM/dL (11.7-16.9); MCHC 33.2 g/dl (32.0-35.9); MEAN CELL VOLUME 87.4 fl (80-96); MEAN PLT VOLUME 9.5 fl (7.5-11.1); MONO % 10.7 % (3.8-10.2); NEUT % 65.8 % (42.8-82.8); PLATELET COUNT 265 10^3/uL (134-434); RBC 4.44 M/mm3 (4.00-5.60); RDW 13.9 % (11.9-15.9); WHITE BLOOD COUNT 5.3 K/mm3 (4.0-10.0)
[2022-10-04] MEDS: MINERAL OIL/PET HY-PHL TOPICAL OINTMENT 454 GM JAR TP SCH ×2 (09:37→22:17)
[2022-10-04] MEDS: THIAMINE HCL 100 MG TABLET (FP) PO SCH (09:37)
[2022-10-04] MEDS: OLANZapine 5 MG TABLET PO SCH ×2 (09:37→22:17)
[2022-10-04] MEDS: ENOXAPARIN NA (PORCINE) 40 MG/0.4 ML DISP.SYRIN SQ SCH (09:37)
[2022-10-04] MEDS: amLODIPine BESYLATE 5 MG TABLET (FP) PO SCH (09:37)
[2022-10-04] MEDS: FOLIC ACID 1 MG TABLET (FP) PO SCH (09:37)
[2022-10-04] MEDS: NICOTINE 14 MG/24 HOURS TOPICAL PATCH TD SCH (09:37)
[2022-10-04 09:42] LABS: POTASSIUM 4.5 mmol/L (3.5-5.1)
[2022-10-04] MEDS: LORazepam 2 MG/ML SDV VIAL IVPUSH PRN ×2 (09:42→17:38)
[2022-10-04 09:51] LABS: BLOOD UREA NITROGEN 23.1 mg/dL (7-18)
[2022-10-04 09:55] LABS: ALBUMIN 2.9 g/dl (3.4-5.0); CALCIUM 8.4 mg/dL (8.5-10.1)
[2022-10-04 09:56] LABS: MAGNESIUM 2.1 mg/dL (1.8-2.4)
[2022-10-04 09:59] LABS: CREATININE 0.9 mg/dL (0.55-1.3)
[2022-10-04 10:00] LABS: BILIRUBIN,TOTAL 0.2 mg/dL (0.2-1)
[2022-10-04 10:03] LABS: TOT PROT 6.6 g/dl (6.4-8.2)
[2022-10-04] MEDS: LORazepam 1 MG TABLET PO PRN (12:44)
[2022-10-04 14:21] VITALS: RESP 18
[2022-10-04] MEDS: SENNOSIDES 8.6MG TABLET (FP) PO SCH (22:17)
[2022-10-04] MEDS: LISINOPRIL 20 MG TABLET PO SCH (22:18)
[2022-10-05] MEDS: methaDONE HCL 40 MG DISPERSABLE TABLET PO SCH (06:39)
[2022-10-05 09:57] LABS: BASO % 0.7 % (0-2.0); EOS % 1.2 % (0-4.5); HEMATOCRIT 37.4 % (35.4-49); HEMOGLOBIN 12.4 GM/dL (11.7-16.9); LYMPH % 18.3 % (8-40); MCH 28.9 pg (25.7-33.7); MCHC 33.2 g/dl (32.0-35.9); MEAN CELL VOLUME 87.2 fl (80-96); MEAN PLT VOLUME 9.5 fl (7.5-11.1); MONO % 10.6 % (3.8-10.2); NEUT % 69.2 % (42.8-82.8); PLATELET COUNT 277 10^3/uL (134-434); RBC 4.29 M/mm3 (4.00-5.60); RDW 13.8 % (11.9-15.9); WHITE BLOOD COUNT 6.3 K/mm3 (4.0-10.0)
[2022-10-05] MEDS: NICOTINE 14 MG/24 HOURS TOPICAL PATCH TD SCH (10:10)
[2022-10-05] MEDS: ENOXAPARIN NA (PORCINE) 40 MG/0.4 ML DISP.SYRIN SQ SCH (10:10)
[2022-10-05] MEDS: THIAMINE HCL 100 MG TABLET (FP) PO SCH (10:11)
[2022-10-05] MEDS: FOLIC ACID 1 MG TABLET (FP) PO SCH (10:11)
[2022-10-05] MEDS: OLANZapine 5 MG TABLET PO SCH ×2 (10:11→22:43)
[2022-10-05] MEDS: amLODIPine BESYLATE 5 MG TABLET (FP) PO SCH (10:12)
[2022-10-05] MEDS: MINERAL OIL/PET HY-PHL TOPICAL OINTMENT 454 GM JAR TP SCH ×2 (10:13→22:43)
[2022-10-05 10:43] LABS: POTASSIUM 4.4 mmol/L (3.5-5.1)
[2022-10-05 10:45] LABS: CALCIUM 8.5 mg/dL (8.5-10.1)
[2022-10-05 10:46] LABS: ALBUMIN 3.1 g/dl (3.4-5.0); BLOOD UREA NITROGEN 18.2 mg/dL (7-18); MAGNESIUM 2.1 mg/dL (1.8-2.4)
[2022-10-05 10:49] LABS: CREATININE 0.9 mg/dL (0.55-1.3)
[2022-10-05 10:51] LABS: TOT PROT 6.8 g/dl (6.4-8.2)
[2022-10-05 10:52] LABS: BILIRUBIN,TOTAL 0.4 mg/dL (0.2-1)
[2022-10-05] MEDS: LISINOPRIL 20 MG TABLET PO SCH (22:42)
[2022-10-05] MEDS: SENNOSIDES 8.6MG TABLET (FP) PO SCH (22:43)
[2022-10-06] MEDS: methaDONE HCL 40 MG DISPERSABLE TABLET PO SCH (06:21)
[2022-10-06 09:49] LABS: BASO % 0.6 % (0-2.0); HEMATOCRIT 37.9 % (35.4-49); LYMPH % 30.4 % (8-40); MCH 29.6 pg (25.7-33.7); MCHC 34.4 g/dl (32.0-35.9); MEAN CELL VOLUME 86.1 fl (80-96); MEAN PLT VOLUME 9.3 fl (7.5-11.1); PLATELET COUNT 258 10^3/uL (134-434); RDW 14.2 % (11.9-15.9); WHITE BLOOD COUNT 4.6 K/mm3 (4.0-10.0)
[2022-10-06 11:02] LABS: ALBUMIN 2.9 g/dl (3.4-5.0); CALCIUM 8.3 mg/dL (8.5-10.1)
[2022-10-06 11:03] LABS: BLOOD UREA NITROGEN 19.9 mg/dL (7-18); MAGNESIUM 2.1 mg/dL (1.8-2.4)
[2022-10-06 11:05] LABS: CREATININE 0.8 mg/dL (0.55-1.3)
[2022-10-06 11:07] LABS: BILIRUBIN,TOTAL 0.5 mg/dL (0.2-1); TOT PROT 6.7 g/dl (6.4-8.2)
[2022-10-06] MEDS: amLODIPine BESYLATE 5 MG TABLET (FP) PO SCH (11:44)
[2022-10-06] MEDS: FOLIC ACID 1 MG TABLET (FP) PO SCH (11:44)
[2022-10-06] MEDS: MINERAL OIL/PET HY-PHL TOPICAL OINTMENT 454 GM JAR TP SCH ×2 (11:44→21:26)
[2022-10-06] MEDS: NICOTINE 14 MG/24 HOURS TOPICAL PATCH TD SCH ×2 (11:44→11:51)
[2022-10-06] MEDS: ENOXAPARIN NA (PORCINE) 40 MG/0.4 ML DISP.SYRIN SQ SCH (11:44)
[2022-10-06] MEDS: THIAMINE HCL 100 MG TABLET (FP) PO SCH (11:50)
[2022-10-06] MEDS: OLANZapine 5 MG TABLET PO SCH ×2 (11:50→21:27)
[2022-10-06] MEDS: LISINOPRIL 20 MG TABLET PO SCH (21:27)
[2022-10-06] MEDS: SENNOSIDES 8.6MG TABLET (FP) PO SCH (21:27)
[2022-10-07] MEDS: methaDONE HCL 40 MG DISPERSABLE TABLET PO SCH (05:58)
[2022-10-07] MEDS ORDERED: OLANZapine 5 MG TABLET PO SCH (07:45)
[2022-10-07] MEDS: ENOXAPARIN NA (PORCINE) 40 MG/0.4 ML DISP.SYRIN SQ SCH (10:34)
[2022-10-07] MEDS: FOLIC ACID 1 MG TABLET (FP) PO SCH (10:34)
[2022-10-07] MEDS: NICOTINE 14 MG/24 HOURS TOPICAL PATCH TD SCH (10:34)
[2022-10-07] MEDS: THIAMINE HCL 100 MG TABLET (FP) PO SCH (10:34)
[2022-10-07] MEDS: amLODIPine BESYLATE 5 MG TABLET (FP) PO SCH (10:34)
[2022-10-07] MEDS: MINERAL OIL/PET HY-PHL TOPICAL OINTMENT 454 GM JAR TP SCH (10:34)
[2022-10-07] MEDS ORDERED: amLODIPine BESYLATE 5 MG TABLET (FP) PO SCH (10:42)
[2022-10-07] MEDS ORDERED: LISINOPRIL 20 MG TABLET PO SCH (10:42)
[2022-10-07 16:04] VITALS: BP 87/59; PULSE 99; TEMP 99.5
== END 2022-10-07 16:35 | DRG 896 ==
LOC: JER 09:14 → JERBED 12:30 → J8W 13:52 → OBSVTOIN 09-28 13:56
PROVIDERS: ADMIT Internal Medicine; ATTEND Nurse Practitioner Family
DX: F19.230 Other psychoactive substance dependence with withdrawal, uncomplicated (principal); G92.8 Other toxic encephalopathy; F11.20 Opioid dependence, uncomplicated; E72.20 Disorder of urea cycle metabolism, unspecified; I10 Essential (primary) hypertension; F25.9 Schizoaffective disorder, unspecified; F29 Unspecified psychosis not due to a substance or known physiological condition; F17.200 Nicotine dependence, unspecified, uncomplicated; R27.0 Ataxia, unspecified; B19.20 Unspecified viral hepatitis C without hepatic coma; F10.230 Alcohol dependence with withdrawal, uncomplicated; W19.XXXA Unspecified fall, initial encounter; Y93.89 Activity, other specified; Y92.89 Other specified places as the place of occurrence of the external cause; Y99.8 Other external cause status
CPT/HCPCS: 36415; 70450-TC; 71045-TC-FY; 72125-TC; 72170-TC-FY; 76700-TC; 80053; 80307; 81003; 82140; 82550; 82553; 82962; 83735; 84100; 84436; 84443; 84484; 85025; 87086; 87635; 93005; 93010; 97116-GP; 97161-GP; 99285-25; G0378

== ENCOUNTER 2023-01-25 12:12 | Inpatient (IN) | payer OTHER ==
[2023-01-25 14:50] VITALS: BMI 20.7
[2023-01-25] MEDS ORDERED: MAG HYDROX/AL HYDROX/SIMETH 30 ML UNIT-DOSE CUP PO PRN (15:41)
[2023-01-25] MEDS ORDERED: NALOXONE HCL 0.4 MG/ML VIAL IM PRN (15:41)
[2023-01-25] MEDS ORDERED: ACETAMINOPHEN 325 MG TABLET (FP) PO PRN (15:41)
[2023-01-25] MEDS ORDERED: BENZOCAINE/MENTHOL (CHLORASEPTIC ) LOZENGE MM PRN (15:41)
[2023-01-25] MEDS ORDERED: guaiFENesin 600 MG TABLET.ER (FP) PO PRN (15:41)
[2023-01-25] MEDS ORDERED: BISMUTH SUBSALICYLATE 262 MG/15 ML BTL PO PRN (15:41)
[2023-01-25] MEDS ORDERED: MAGNESIUM HYDROX 2400MG/30ML ORAL SUSPENSION 30 ML CUP PO PRN (15:41)
[2023-01-25] MEDS ORDERED: NALOXONE HCL (KLOXXADO) 8 MG SPRAY NS PRN (15:41)
[2023-01-25] MEDS ORDERED: ONDANSETRON *ODT* 4 MG TABLET SL PRN (15:41)
[2023-01-25] MEDS ORDERED: LOPERAMIDE HCL 2 MG CAPSULE PO PRN (15:41)
[2023-01-25] MEDS ORDERED: POLYETHYLENE GLYCOL (HEALTHYLAX) 3350 17 GM PACKET PO PRN (15:41)
[2023-01-25] MEDS ORDERED: BENZONATATE 200 MG CAPSULE PO PRN (15:41)
[2023-01-25] MEDS ORDERED: IBUPROFEN 400 MG TABLET (FP) PO PRN (15:41)
[2023-01-25] MEDS: IBUPROFEN 600 MG TABLET (FP) PO PRN (18:52)
[2023-01-25] MEDS: NICOTINE POLACRILEX 2 MG GUM BUC PRN (18:54)
[2023-01-25] MEDS ORDERED: LISINOPRIL 5 MG TABLET PO ONE (20:55)
[2023-01-25] MEDS: THIAMINE HCL 100 MG TABLET (FP) PO SCH (21:34)
[2023-01-25] MEDS: MELATONIN 5 MG TABLETS PO SCH (21:38)
[2023-01-25] MEDS ORDERED: amLODIPine BESYLATE 5 MG TABLET (FP) PO ONE (23:19)
[2023-01-26] MEDS: LISINOPRIL 20 MG TABLET PO SCH (10:28)
[2023-01-26] MEDS: PRENATAL VITAMINS W/ FOLIC ACID TABLET (FP) PO SCH (10:28)
[2023-01-26] MEDS: amLODIPine BESYLATE 10 MG TABLET (FP) PO SCH (10:28)
[2023-01-26 10:43] LABS: CHLORIDE 107 mmol/L (98-107); POTASSIUM 4.7 mmol/L (3.5-5.1); SODIUM 138 mmol/L (136-145)
[2023-01-26 10:45] LABS: HEMOGLOBIN 11.6 GM/dL (11.7-16.9); MCH 28.7 pg (25.7-33.7); MCHC 33.1 g/dl (32.0-35.9); MEAN CELL VOLUME 86.8 fl (80-96); MEAN PLT VOLUME 9.7 fl (7.5-11.1); PLATELET COUNT 284 10^3/uL (134-434); RBC 4.04 M/mm3 (4.00-5.60); RDW 15.4 % (11.9-15.9); WHITE BLOOD COUNT 6.3 K/mm3 (4.0-10.0)
[2023-01-26 10:58] LABS: CALCIUM 8.3 mg/dL (8.5-10.1); GLUCOSE,RANDOM 75 mg/dL (74-106)
[2023-01-26 10:59] LABS: ALBUMIN 2.8 g/dl (3.4-5.0)
[2023-01-26 11:01] LABS: SGPT/ALT 16 U/L (13-61)
[2023-01-26 11:02] LABS: ANION GAP 7 mmol/L (4-13); BILIRUBIN,TOTAL 0.6 mg/dL (0.2-1); BLOOD UREA NITROGEN 12.1 mg/dL (7-18); CO2 24 mmol/L (21-32); SGOT/AST 15 U/L (15-37)
[2023-01-26 11:03] LABS: TOT PROT 6.5 g/dl (6.4-8.2)
[2023-01-26 11:04] LABS: ALK PHOS 97 U/L (45-117); CREATININE 0.7 mg/dL (0.55-1.3)
[2023-01-26] MEDS: methaDONE HCL 40 MG DISPERSABLE TABLET PO SCH (11:34)
[2023-01-26] MEDS: IBUPROFEN 600 MG TABLET (FP) PO PRN ×2 (16:30→22:34)
[2023-01-26] MEDS: NICOTINE POLACRILEX 2 MG GUM BUC PRN (20:02)
[2023-01-26] MEDS: MELATONIN 5 MG TABLETS PO SCH (21:50)
[2023-01-26] MEDS: LACTULOSE 20 GM/30 ML UDC (FOR ORAL USE ONLY) PO SCH (21:50)
[2023-01-26] MEDS: THIAMINE HCL 100 MG TABLET (FP) PO SCH (21:50)
[2023-01-27] MEDS: methaDONE HCL 40 MG DISPERSABLE TABLET PO SCH (05:51)
[2023-01-27] MEDS: PRENATAL VITAMINS W/ FOLIC ACID TABLET (FP) PO SCH (10:28)
[2023-01-27] MEDS: LISINOPRIL 20 MG TABLET PO SCH (10:28)
[2023-01-27] MEDS: LACTULOSE 20 GM/30 ML UDC (FOR ORAL USE ONLY) PO SCH ×3 (10:28→22:28)
[2023-01-27] MEDS: IBUPROFEN 600 MG TABLET (FP) PO PRN ×2 (10:29→17:42)
[2023-01-27] MEDS: amLODIPine BESYLATE 10 MG TABLET (FP) PO SCH (10:29)
[2023-01-27] MEDS ORDERED: traZODone HCL 50 MG TABLET (FP) PO SCH (22:00)
[2023-01-27] MEDS ORDERED: OLANZapine 5 MG TABLET PO SCH (22:00)
[2023-01-27] MEDS: THIAMINE HCL 100 MG TABLET (FP) PO SCH (22:28)
[2023-01-27] MEDS: MELATONIN 5 MG TABLETS PO SCH (22:28)
[2023-01-28] MEDS: methaDONE HCL 40 MG DISPERSABLE TABLET PO SCH (05:24)
[2023-01-28] MEDS: LACTULOSE 20 GM/30 ML UDC (FOR ORAL USE ONLY) PO SCH (05:25)
[2023-01-28 06:42] VITALS: TEMP 97.7
[2023-01-28] MEDS: PRENATAL VITAMINS W/ FOLIC ACID TABLET (FP) PO SCH (10:23)
[2023-01-28] MEDS: LISINOPRIL 20 MG TABLET PO SCH (10:23)
[2023-01-28] MEDS: amLODIPine BESYLATE 10 MG TABLET (FP) PO SCH (10:23)
[2023-01-28 13:26] VITALS: BP 150/94; PULSE 74; RESP 18
== END 2023-01-28 15:35 | disposition home or self-care (01) | DRG 897 ==
LOC: YASAS 12:12 → Y3N 16:32
PROVIDERS: ADMIT Allergy & Immunology; ATTEND Surgery
PROC: HZ2ZZZZ Detoxification Services for Substance Abuse Treatment (ICD-10-PCS; principal; 2023-01-25)
DX: F10.230 Alcohol dependence with withdrawal, uncomplicated (principal); F14.20 Cocaine dependence, uncomplicated; F11.20 Opioid dependence, uncomplicated; F15.20 Other stimulant dependence, uncomplicated; E72.20 Disorder of urea cycle metabolism, unspecified; F19.24 Other psychoactive substance dependence with psychoactive substance-induced mood disorder; F17.210 Nicotine dependence, cigarettes, uncomplicated; F25.9 Schizoaffective disorder, unspecified; R41.82 Altered mental status, unspecified; Z91.81 History of falling; Z99.89 Dependence on other enabling machines and devices; Z91.148 Patient's other noncompliance with medication regimen for other reason
CPT/HCPCS: 36415; 80053; 80307; 82140; 85027; 86780; 87635; 93005; 93010

== ENCOUNTER 2024-03-17 12:04 | Emergency (ER) | payer OTHER ==
[2024-03-17 12:35] VITALS: TEMP 99; BMI 20.7
[2024-03-17] MEDS: SODIUM CHLORIDE 0.9% 500 ML INFUS.BAG IV ONE ×2 (13:01→14:53)
[2024-03-17 19:12] VITALS: BP 111/70; PULSE 96; RESP 18
== END 2024-03-17 19:31 | disposition home or self-care (01) ==
LOC: JER 12:04
DX: R19.7 Diarrhea, unspecified (principal); R00.0 Tachycardia, unspecified
CPT/HCPCS: 99283-25